=== PATIENT | female | born 1965 | race Caucasian/White ===

== ENCOUNTER 2023-10-31 12:48 | Emergency (ER) | payer MEDICARE, MEDICAID ==
[~2023-10-31] VITALS: Ht 162.6 cm; Wt 87.0 kg
[2023-10-31 12:56] VITALS: BP 106/42; PULSE 86; RESP 18; TEMP 99.4; O2SAT 98
== END 2023-10-31 19:45 | disposition left against medical advice (07) ==
LOC: ER 12:48
DX: R51.9 Headache, unspecified (principal); Z53.21 Procedure and treatment not carried out due to patient leaving prior to being seen by health care provider